=== PATIENT | female | born 1955 | race Caucasian/White ===

== ENCOUNTER 2017-10-05 18:50 | Emergency (ER) | payer OTHER ==
[~2017-10-05] VITALS: Ht 157.5 cm; Wt 99.8 kg
[~2017-10-05 18:50] MED LIST: AUGMENTIN 500-1 EACH PO; BACTRIM DS TAB1 EACH PO; EFFEXOR XR150 MG PO; MUPIROCIN22 GM TOP; NORCO 5-325 TA1 EACH PO; VESICARE PO; ZYPREXA PO
[2017-10-05 22:31] VITALS: BP 139/98
[2017-10-06] MEDS ORDERED: TYLENOL325 MG PO (08:23)
[2017-10-06] MEDS ORDERED: LIPITOR10 MG PO (08:24)
[2017-10-06] MEDS ORDERED: ALPHAGAN P5 ML OPHTHALMIC (08:25)
[2017-10-06] MEDS ORDERED: SINEMET 25-1001 EAC1 PO (08:26)
[2017-10-06] MEDS ORDERED: ELIQUIS5 MG PO (08:26)
[2017-10-06] MEDS ORDERED: EQL HEADACHE R1 EACH PO (08:28)
[2017-10-06] MEDS ORDERED: GABAPENTIN 100100 MG PO (08:28)
[2017-10-06] MEDS ORDERED: XALATAN2.5 ML OPHTHALMIC (08:28)
[2017-10-06] MEDS ORDERED: MIRALAX17 GM PO (08:29)
[2017-10-06] MEDS ORDERED: LEVOXYL75 MCG PO (08:29)
[2017-10-06] MEDS ORDERED: ARTIFICIAL TEA1 EACH OPHTHALMIC (08:30)
[2017-10-06] MEDS ORDERED: NYSTATIN1 EA10 (08:31)
[2017-10-06] MEDS ORDERED: SENNA S TABLET1 EACH PO (08:31)
[2017-10-06] MEDS ORDERED: QUETIAPINE FUM100 MG PO (08:32)
[2017-10-06] MEDS ORDERED: VENLAFAXINE HC150 M1 PO (08:33)
[2017-10-06] MEDS ORDERED: TIMOLOL GL0.5 %/5 M1 OPHTHALMIC (08:33)
[2017-10-06] MEDS ORDERED: VITAMIN D3400 UNIT PO (08:34)
== END 2017-10-05 21:00 | disposition home or self-care (01) ==
LOC: ER
DX: S00.83XA Contusion of other part of head, initial encounter (principal); S00.03XA Contusion of scalp, initial encounter; W07.XXXA Fall from chair, initial encounter; Y92.129 Unspecified place in nursing home as the place of occurrence of the external cause; Y93.89 Activity, other specified; Y99.8 Other external cause status

== ENCOUNTER 2017-10-06 16:36 | Emergency (ER) | payer OTHER ==
[~2017-10-06] VITALS: Ht 175.3 cm; Wt 136.1 kg
[~2017-10-06 16:36] MED LIST changes: +ALPHAGAN P5 ML OPHTHALMIC; +ARTIFICIAL TEA1 EACH OPHTHALMIC; +ELIQUIS5 MG PO; +EQL HEADACHE R1 EACH PO; +GABAPENTIN 100100 MG PO; +LEVOXYL75 MCG PO; +LIPITOR10 MG PO; +MIRALAX17 GM PO; +NYSTATIN1 EA10; +QUETIAPINE FUM100 MG PO; +SENNA S TABLET1 EACH PO; +SINEMET 25-1001 EAC1 PO; +TIMOLOL GL0.5 %/5 M1 OPHTHALMIC; +TYLENOL325 MG PO; +VENLAFAXINE HC150 M1 PO; +VITAMIN D3400 UNIT PO; +XALATAN2.5 ML OPHTHALMIC
[2017-10-06 16:57] VITALS: BP 142/88
[2017-10-06 19:59] LABS: ABSOLUTE NEUTROPHILS 3.3 thou/uL (1.4-8.2); BASOPHILS 0.5 % (0.0-2.0); EOSINOPHILS 2.1 % (0.0-3.0); HEMATOCRIT 41.5 % (37.0-47.0); HEMOGLOBIN 13.9 gm/dL (12.0-15.0); LYMPHOCYTES 30.1 % (24.0-44.0); MCH 30.4 pg (26.0-34.0); MCHC 33.4 g/dL (28.0-37.0); MONOCYTES 10.7 % (1.0-8.0); PLATELET COUNT 311 thou/uL (150-400); POLYS 56.6 % (36.0-66.0); RBC 4.56 mil/uL (4.20-5.00); RDW 13.8 % (10.5-14.5); WBC 5.8 thou/uL (4.0-11.0)
[2017-10-06 20:12] LABS: ANION GAP 4 mmol/L (7-16); BUN 24 mg/dL (7-18); CHLORIDE 104 mmol/L (98-107); CO2 30 mmol/L (21-32); CREATININE 0.8 mg/dL (0.6-1.0); GLUCOSE 123 mg/dL (74-106); POTASSIUM 4.6 mmol/L (3.5-5.1); SODIUM 138 mmol/L (136-145)
[2017-10-06 20:13] LABS: ALBUMIN 3.5 g/dL (3.4-5.0); DIRECT BILIRUBIN < 0.1 mg/dL (<0.1-0.3); SGOT 30 U/L (15-37); SGPT 16 U/L (30-65); TOTAL BILIRUBIN 0.6 mg/dL (<0.1-1.0); TOTAL PROTEIN 7.5 g/dL (6.4-8.2)
[2017-10-06 22:45] VITALS: BP 143/81
== END 2017-10-06 22:46 ==
LOC: ER 16:36 → EROBS 20:25 → ER 22:46
PROVIDERS: Emergency Medicine
DX: R41.82 Altered mental status, unspecified (principal); G89.29 Other chronic pain; R46.89 Other symptoms and signs involving appearance and behavior; G20 Parkinson's disease; E78.5 Hyperlipidemia, unspecified; M19.90 Unspecified osteoarthritis, unspecified site; W18.39XA Other fall on same level, initial encounter; Y93.89 Activity, other specified; Y92.89 Other specified places as the place of occurrence of the external cause; Y99.8 Other external cause status